=== PATIENT | male | born 1950 | race Caucasian/White ===

== ENCOUNTER 2021-04-11 15:06 | Inpatient (IN) | payer MEDICARE, OTHER ==
[~2021-04-11] VITALS: Ht 177.8 cm; Wt 125.2 kg
[2021-04-11] MEDS ORDERED: SODIUM CHLORIDE 0.9% 1000ML 1,000 ML IV SCH (16:15)
[2021-04-11] MEDS ORDERED: CEFTRIAXONE 1 GM VIAL IM ONE (16:15)
[2021-04-11 16:37] LABS: BASOPHILS % 0.3 % (0.0-1.0); EOSINOPHILS % 0.1 % (0.0-6.0); HEMATOCRIT 43.9 % (38.2-49.6); HEMOGLOBIN 14.1 g/dL (14.0-18.0); LYMPHOCYTES # (AUTO) 1.1 (1.0-3.2); LYMPHOCYTES % 9.2 % (18.0-39.1); MEAN CORPUSCULAR HEMOGLOBIN 27.3 pg (28-32); MEAN CORPUSCULAR HGB CONC 32.1 g/dL (31-35); MEAN CORPUSCULAR VOLUME 85.1 fL (81-99); MONOCYTES # (AUTO) 0.9 (0.2-0.8); MONOCYTES % 7.8 % (4.4-11.3); NEUTROPHILS # (AUTO) 9.4 (2.1-6.9); NEUTROPHILS % 81.5 % (38.7-80.0); PLATELET COUNT 226 x10e3/uL (140-360); RED BLOOD COUNT 5.16 x10e6/uL (4.3-5.7); RED CELL DISTRIBUTION WIDTH 14.6 % (11.7-14.4)
[2021-04-11 16:45] LABS: INR 0.98; PROTHROMBIN TIME 13.7 seconds (11.9-14.5)
[2021-04-11 16:55] LABS: ALBUMIN 3.1 g/dL (3.5-5.0); ALBUMIN/GLOBULIN RATIO 0.8 (0.8-2.0); CALCIUM 8.3 mg/dL (8.4-10.2); CREATININE, SERUM 2.2 mg/dL (0.72-1.25)
[2021-04-11] MEDS ORDERED: DEXAMETHASONE SOD PHOS 10 MG/1 ML VIAL IV ONE (18:00)
[2021-04-11 20:01] LABS: CLARITY,URINE SL CLOUDY (CLEAR); COLOR,URINE AMBER (YELLOW); KETONES,URINE NEGATIVE (NEGATIVE); LEUKOCYTE ESTERASE ,URINE NEGATIVE (NEGATIVE); NITRITE,URINE NEGATIVE (NEGATIVE); PROTEIN,URINE DIPSTICK 2+ (NEGATIVE)
[2021-04-11 20:02] LABS: URINE UROBILINOGEN 1 mg/dL (0.2 - 1)
[2021-04-11 20:11] LABS: BACTERIA,URINE MODERATE /HPF
[2021-04-12] MEDS: ZOLPIDEM TARTRATE 5 MG TAB PO PRN ×2 (01:38→23:33)
[2021-04-12] MEDS: HYDROCODONE/APAP 5MG-325MG TAB PO PRN (01:38)
[2021-04-12 05:52] LABS: BASOPHILS % 0.1 % (0.0-1.0); LYMPHOCYTES # (AUTO) 0.7 (1.0-3.2); LYMPHOCYTES % 8.7 % (18.0-39.1); MEAN CORPUSCULAR HEMOGLOBIN 27.3 pg (28-32); MEAN CORPUSCULAR HGB CONC 32.6 g/dL (31-35); MEAN CORPUSCULAR VOLUME 83.8 fL (81-99); MONOCYTES # (AUTO) 0.5 (0.2-0.8); MONOCYTES % 5.7 % (4.4-11.3); NEUTROPHILS # (AUTO) 6.8 (2.1-6.9); NEUTROPHILS % 83.9 % (38.7-80.0); PLATELET COUNT 231 x10e3/uL (140-360); RED BLOOD COUNT 5.13 x10e6/uL (4.3-5.7)
[2021-04-12 05:59] LABS: ALBUMIN 2.9 g/dL (3.5-5.0); ALBUMIN/GLOBULIN RATIO 0.7 (0.8-2.0); ANION GAP 16.1 mmol/L (8-16); CALCIUM 7.9 mg/dL (8.4-10.2); CREATININE, SERUM 1.85 mg/dL (0.72-1.25); POTASSIUM 4.1 mmol/L (3.5-5.1)
[2021-04-12 07:09] LABS: CREATINE KINASE MB 0.7 ng/mL (0-5.0)
[2021-04-12] MEDS: ASCORBIC ACID 500 MG TAB PO SCH ×2 (08:13→16:54)
[2021-04-12] MEDS: ENOXAPARIN INJ 80 MG/0.8 ML SYR SC SCH ×2 (08:13→16:54)
[2021-04-12] MEDS: ZINC SULFATE 50 MG CAP PO SCH (08:13)
[2021-04-12] MEDS ORDERED: DEXTROSE 50% SYRINGE 50 ML IV PRN (09:15)
[2021-04-12] MEDS: INSULIN LISPRO 100 UNIT/1 ML 3ML VIAL SQ SCH ×3 (11:47→21:11)
[2021-04-12 12:19] LABS: ABG HCO3 25 mmol/L (22-26); ABG PCO2 35 mmHg (35-45); ABG PH 7.46 (7.35-7.45); ABG PO2 61 mmHg (80-105); ABG TCO2 26
[2021-04-12] MEDS ORDERED: GABAPENTIN 100 MG CAP ONE (13:44)
[2021-04-12] MEDS: CEFTRIAXONE 2 GM in SODIUM CHLORIDE 0.9% 100 ML IV SCH (16:54)
[2021-04-12] MEDS: DEXAMETHASONE SOD PHOS 10 MG/1 ML VIAL IV SCH (17:47)
[2021-04-12 20:00] VITALS: BP 124/78
[2021-04-12 21:15] VITALS: BP 124/78
[2021-04-12 21:46] VITALS: BP 124/78
[2021-04-12] MEDS ORDERED: GABAPENTIN 300 MG CAP PO ONE (23:30)
[2021-04-13] VITALS: BP 137/81
[2021-04-13] MEDS ORDERED: METFORMIN HCL500 MG PO (01:14)
[2021-04-13] MEDS ORDERED: NEURONTIN300 MG PO (01:14)
[2021-04-13] MEDS ORDERED: AMLODIPINE BESY10 MG PO (01:14)
[2021-04-13] MEDS ORDERED: ATORVASTATIN CA10 MG PO (01:14)
[2021-04-13] MEDS ORDERED: METOPROLOL SUCC50 MG PO (01:14)
[2021-04-13] MEDS ORDERED: LOSARTAN-HCTZ1 EAC1 PO (01:14)
[2021-04-13] MEDS ORDERED: GLIMEPIRIDE2 MG PO (01:14)
[2021-04-13 04:00] VITALS: BP 126/68
[2021-04-13 05:05] LABS: BASOPHILS % 0.1 % (0.0-1.0); HEMATOCRIT 39.7 % (38.2-49.6); HEMOGLOBIN 13.1 g/dL (14.0-18.0); LYMPHOCYTES # (AUTO) 0.9 (1.0-3.2); LYMPHOCYTES % 5.3 % (18.0-39.1); MEAN CORPUSCULAR HEMOGLOBIN 27.7 pg (28-32); MEAN CORPUSCULAR VOLUME 83.9 fL (81-99); MONOCYTES # (AUTO) 1.2 (0.2-0.8); NEUTROPHILS # (AUTO) 14.5 (2.1-6.9); NEUTROPHILS % 86.2 % (38.7-80.0); PLATELET COUNT 265 x10e3/uL (140-360); RED BLOOD COUNT 4.73 x10e6/uL (4.3-5.7); RED CELL DISTRIBUTION WIDTH 13.9 % (11.7-14.4)
[2021-04-13 05:51] LABS: ALBUMIN 2.7 g/dL (3.5-5.0); ALBUMIN/GLOBULIN RATIO 0.7 (0.8-2.0); ANION GAP 17.9 mmol/L (8-16); CALCIUM 7.8 mg/dL (8.4-10.2); CREATININE, SERUM 1.6 mg/dL (0.72-1.25); POTASSIUM 3.9 mmol/L (3.5-5.1)
[2021-04-13 08:03] VITALS: BP 100/47
[2021-04-13] MEDS: DEXAMETHASONE SOD PHOS 10 MG/1 ML VIAL IV SCH (08:45)
[2021-04-13] MEDS: ENOXAPARIN INJ 80 MG/0.8 ML SYR SC SCH ×2 (08:45→17:08)
[2021-04-13] MEDS: ZINC SULFATE 50 MG CAP PO SCH (08:45)
[2021-04-13] MEDS: GABAPENTIN 100 MG CAP PO SCH (08:45)
[2021-04-13] MEDS: ASCORBIC ACID 500 MG TAB PO SCH ×2 (08:45→17:08)
[2021-04-13] MEDS: INSULIN LISPRO 100 UNIT/1 ML 3ML VIAL SQ SCH ×4 (09:02→21:24)
[2021-04-13] MEDS: GUAIFENESIN 200 MG/10 ML UDC PO PRN (14:55)
[2021-04-13 16:09] VITALS: BP 121/77
[2021-04-13] MEDS ORDERED: SODIUM CHLORIDE 0.9% 250ML 250 ML ONE (16:57)
[2021-04-13] MEDS: CEFTRIAXONE 2 GM in SODIUM CHLORIDE 0.9% 100 ML IV SCH (17:08)
[2021-04-13 20:00] VITALS: BP 121/72
[2021-04-13 20:55] VITALS: BP 121/72
[2021-04-14] VITALS (8 sets, daily range): BP systolic 132–152; BP diastolic 67–83
[2021-04-14] MEDS: ZOLPIDEM TARTRATE 5 MG TAB PO PRN ×2 (01:48→22:42)
[2021-04-14 05:08] LABS: BASOPHILS % 0.2 % (0.0-1.0); EOSINOPHILS % 0.1 % (0.0-6.0); HEMATOCRIT 43.8 % (38.2-49.6); HEMOGLOBIN 13.5 g/dL (14.0-18.0); LYMPHOCYTES # (AUTO) 0.9 (1.0-3.2); LYMPHOCYTES % 5.4 % (18.0-39.1); MEAN CORPUSCULAR HEMOGLOBIN 27.7 pg (28-32); MEAN CORPUSCULAR HGB CONC 30.8 g/dL (31-35); MEAN CORPUSCULAR VOLUME 89.8 fL (81-99); MONOCYTES # (AUTO) 1.2 (0.2-0.8); MONOCYTES % 7.2 % (4.4-11.3); NEUTROPHILS # (AUTO) 14.5 (2.1-6.9); NEUTROPHILS % 86.3 % (38.7-80.0); PLATELET COUNT 234 x10e3/uL (140-360); RED BLOOD COUNT 4.88 x10e6/uL (4.3-5.7); RED CELL DISTRIBUTION WIDTH 14.1 % (11.7-14.4)
[2021-04-14] MEDS ORDERED: MAGNESIUM SULFATE 2GM/50ML 50 ML IV ONE (06:00)
[2021-04-14] MEDS: INSULIN LISPRO 100 UNIT/1 ML 3ML VIAL SQ SCH ×4 (07:30→20:38)
[2021-04-14 07:32] LABS: ALBUMIN 2.5 g/dL (3.5-5.0); ALBUMIN/GLOBULIN RATIO 0.7 (0.8-2.0); ANION GAP 14.9 mmol/L (8-16); CALCIUM 7.7 mg/dL (8.4-10.2); CREATININE, SERUM 1.34 mg/dL (0.72-1.25); POTASSIUM 3.9 mmol/L (3.5-5.1)
[2021-04-14] MEDS: ENOXAPARIN INJ 80 MG/0.8 ML SYR SC SCH ×2 (11:37→16:05)
[2021-04-14] MEDS: GABAPENTIN 100 MG CAP PO SCH (11:37)
[2021-04-14] MEDS: ZINC SULFATE 50 MG CAP PO SCH (11:37)
[2021-04-14] MEDS: ASCORBIC ACID 500 MG TAB PO SCH ×2 (11:37→16:05)
[2021-04-14] MEDS: DEXAMETHASONE SOD PHOS 10 MG/1 ML VIAL IV SCH (11:37)
[2021-04-14] MEDS ORDERED: AZITHROMYCIN 250 MG TAB PO SCH (15:00)
[2021-04-14] MEDS: CEFTRIAXONE 2 GM in SODIUM CHLORIDE 0.9% 100 ML IV SCH (16:05)
[2021-04-14] MEDS: GABAPENTIN 300 MG CAP PO PRN (20:36)
[2021-04-15] VITALS (9 sets, daily range): BP systolic 86–128; BP diastolic 54–101
[2021-04-15] MEDS: METOPROLOL SUCCINATE 50 MG TAB XL PO SCH ×2 (00:13→08:59)
[2021-04-15 05:07] LABS: BASOPHILS % 0.1 % (0.0-1.0); HEMATOCRIT 43.5 % (38.2-49.6); HEMOGLOBIN 14.2 g/dL (14.0-18.0); LYMPHOCYTES # (AUTO) 0.9 (1.0-3.2); LYMPHOCYTES % 5.8 % (18.0-39.1); MEAN CORPUSCULAR HEMOGLOBIN 27.3 pg (28-32); MEAN CORPUSCULAR HGB CONC 32.6 g/dL (31-35); MEAN CORPUSCULAR VOLUME 83.7 fL (81-99); MONOCYTES # (AUTO) 1.2 (0.2-0.8); MONOCYTES % 7.7 % (4.4-11.3); NEUTROPHILS # (AUTO) 12.6 (2.1-6.9); NEUTROPHILS % 84.7 % (38.7-80.0); PLATELET COUNT 308 x10e3/uL (140-360); RED CELL DISTRIBUTION WIDTH 13.8 % (11.7-14.4)
[2021-04-15] MEDS: GUAIFENESIN 200 MG/10 ML UDC PO PRN ×2 (05:16→16:29)
[2021-04-15 05:54] LABS: ALBUMIN 2.6 g/dL (3.5-5.0); ALBUMIN/GLOBULIN RATIO 0.6 (0.8-2.0); ANION GAP 16.3 mmol/L (8-16); CALCIUM 8.2 mg/dL (8.4-10.2); CREATININE, SERUM 1.18 mg/dL (0.72-1.25); POTASSIUM 4.3 mmol/L (3.5-5.1)
[2021-04-15] MEDS ORDERED: METOPROLOL TARTRATE INJ 1 MG/ML VIAL IV ONE (08:00)
[2021-04-15] MEDS: GABAPENTIN 100 MG CAP PO SCH (08:58)
[2021-04-15] MEDS: DEXAMETHASONE SOD PHOS 10 MG/1 ML VIAL IV SCH (08:58)
[2021-04-15] MEDS: ASCORBIC ACID 500 MG TAB PO SCH ×2 (08:59→16:29)
[2021-04-15] MEDS: ZINC SULFATE 50 MG CAP PO SCH (08:59)
[2021-04-15] MEDS: ENOXAPARIN INJ 80 MG/0.8 ML SYR SC SCH ×2 (08:59→16:29)
[2021-04-15] MEDS ORDERED: LOSARTAN POTASSIUM 100 MG TAB PO SCH (09:00)
[2021-04-15] MEDS ORDERED: HYDROCHLOROTHIAZIDE 25 MG TAB PO SCH (09:00)
[2021-04-15] MEDS ORDERED: AMLODIPINE BESYLATE 10 MG TAB PO SCH (09:00)
[2021-04-15] MEDS: INSULIN LISPRO 100 UNIT/1 ML 3ML VIAL SQ SCH ×4 (10:00→21:25)
[2021-04-15] MEDS ORDERED: SODIUM CHLORIDE 0.9% 50ML 50 ML ONE (13:59)
[2021-04-15] MEDS ORDERED: IOPAMIDOL 370 MG/ML 200 ML INFUS..BTL INJ ONE (14:00)
[2021-04-15] MEDS ORDERED: REMDESIVIR 100MG 200 MG in SODIUM CHLORIDE 0.9% 100 ML IV ONE (14:00)
[2021-04-15] MEDS ORDERED: DIGOXIN INJ 0.25 MG/ML 2 ML AMP IV ONE (17:15)
[2021-04-15] MEDS ORDERED: METOPROLOL SUCCINATE 50 MG TAB XL PO SCH (17:30)
[2021-04-15] MEDS ORDERED: AMIODARONE 900MG 500 ML IV PRN (19:45)
[2021-04-15] MEDS ORDERED: AMIODARONE HCL 150 MG/100 ML BAG IV ONE (19:45)
[2021-04-15] MEDS ORDERED: ENOXAPARIN SODIUM INJ 100 MG/ML SYR SC SCH (19:45)
[2021-04-15] MEDS ORDERED: AMIODARONE 900MG 500 ML IV ONE (21:00)
[2021-04-15] MEDS: GABAPENTIN 300 MG CAP PO PRN (23:00)
[2021-04-15] MEDS: ZOLPIDEM TARTRATE 5 MG TAB PO PRN (23:00)
[2021-04-16] VITALS (11 sets, daily range): BP systolic 97–124; BP diastolic 66–86
[2021-04-16] MEDS: INSULIN LISPRO 100 UNIT/1 ML 3ML VIAL SQ SCH ×4 (07:44→21:26)
[2021-04-16 07:53] LABS: BASOPHILS % 0.2 % (0.0-1.0); HEMATOCRIT 47.9 % (38.2-49.6); HEMOGLOBIN 15.5 g/dL (14.0-18.0); LYMPHOCYTES # (AUTO) 1.5 (1.0-3.2); LYMPHOCYTES % 7.7 % (18.0-39.1); MEAN CORPUSCULAR HEMOGLOBIN 27.3 pg (28-32); MEAN CORPUSCULAR HGB CONC 32.4 g/dL (31-35); MEAN CORPUSCULAR VOLUME 84.3 fL (81-99); MONOCYTES # (AUTO) 1.5 (0.2-0.8); MONOCYTES % 7.9 % (4.4-11.3); NEUTROPHILS # (AUTO) 15.9 (2.1-6.9); NEUTROPHILS % 82.7 % (38.7-80.0); PLATELET COUNT 327 x10e3/uL (140-360); RED BLOOD COUNT 5.68 x10e6/uL (4.3-5.7); RED CELL DISTRIBUTION WIDTH 13.8 % (11.7-14.4)
[2021-04-16 08:17] LABS: ALBUMIN 2.6 g/dL (3.5-5.0); ALBUMIN/GLOBULIN RATIO 0.7 (0.8-2.0); CALCIUM 8.3 mg/dL (8.4-10.2); CREATININE, SERUM 1.26 mg/dL (0.72-1.25)
[2021-04-16] MEDS ORDERED: LOSARTAN POTASSIUM 25 MG TAB PO SCH (09:00)
[2021-04-16] MEDS ORDERED: METOPROLOL SUCCINATE 50 MG TAB XL PO NR (12:00)
[2021-04-16] MEDS ORDERED: DIGOXIN INJ 0.25 MG/ML 2 ML AMP IV NR (12:00)
[2021-04-16] MEDS: REMDESIVIR 100MG 100 MG in SODIUM CHLORIDE 0.9% 100 ML IV SCH (14:00)
[2021-04-16] MEDS: ASCORBIC ACID 500 MG TAB PO SCH ×2 (14:33→17:55)
[2021-04-16] MEDS: DEXAMETHASONE SOD PHOS 10 MG/1 ML VIAL IV SCH (14:33)
[2021-04-16] MEDS: ZINC SULFATE 50 MG CAP PO SCH (14:33)
[2021-04-16] MEDS: ENOXAPARIN SOD INJ 60 MG/0.6 ML SYR SC SCH ×2 (14:33→21:26)
[2021-04-16] MEDS: GABAPENTIN 100 MG CAP PO SCH (14:33)
[2021-04-16] MEDS: METOPROLOL SUCCINATE 50 MG TAB XL PO SCH (17:56)
[2021-04-16] MEDS ORDERED: AMIODARONE 900MG 500 ML IV ONE (23:45)
[2021-04-17] VITALS (9 sets, daily range): BP systolic 93–130; BP diastolic 53–90
[2021-04-17 06:30] LABS: BASOPHILS % 0.2 % (0.0-1.0); EOSINOPHILS % 0.1 % (0.0-6.0); HEMATOCRIT 44.7 % (38.2-49.6); HEMOGLOBIN 14.6 g/dL (14.0-18.0); LYMPHOCYTES % 5.5 % (18.0-39.1); MEAN CORPUSCULAR HEMOGLOBIN 27.3 pg (28-32); MEAN CORPUSCULAR HGB CONC 32.7 g/dL (31-35); MEAN CORPUSCULAR VOLUME 83.7 fL (81-99); MONOCYTES # (AUTO) 1.5 (0.2-0.8); MONOCYTES % 8.2 % (4.4-11.3); NEUTROPHILS # (AUTO) 15.6 (2.1-6.9); NEUTROPHILS % 83.8 % (38.7-80.0); PLATELET COUNT 360 x10e3/uL (140-360); RED BLOOD COUNT 5.34 x10e6/uL (4.3-5.7); RED CELL DISTRIBUTION WIDTH 13.7 % (11.7-14.4)
[2021-04-17 07:10] LABS: ALBUMIN 2.6 g/dL (3.5-5.0); ALBUMIN/GLOBULIN RATIO 0.7 (0.8-2.0); ANION GAP 15.3 mmol/L (8-16); CALCIUM 8.7 mg/dL (8.4-10.2); CREATININE, SERUM 1.46 mg/dL (0.72-1.25); POTASSIUM 4.3 mmol/L (3.5-5.1)
[2021-04-17] MEDS: INSULIN LISPRO 100 UNIT/1 ML 3ML VIAL SQ SCH ×4 (08:30→22:27)
[2021-04-17] MEDS: ENOXAPARIN SOD INJ 60 MG/0.6 ML SYR SC SCH ×2 (08:30→22:29)
[2021-04-17] MEDS: GABAPENTIN 100 MG CAP PO SCH (08:44)
[2021-04-17] MEDS: ASCORBIC ACID 500 MG TAB PO SCH ×2 (08:44→16:33)
[2021-04-17] MEDS: DEXAMETHASONE SOD PHOS 10 MG/1 ML VIAL IV SCH (08:44)
[2021-04-17] MEDS: METOPROLOL SUCCINATE 50 MG TAB XL PO SCH ×2 (08:44→16:54)
[2021-04-17] MEDS: ZINC SULFATE 50 MG CAP PO SCH (08:44)
[2021-04-17] MEDS ORDERED: DIGOXIN INJ 0.25 MG/ML 2 ML AMP IV NR (11:15)
[2021-04-17] MEDS: AMIODARONE HCL 200 MG TAB PO SCH ×2 (12:19→16:54)
[2021-04-17] MEDS: REMDESIVIR 100MG 100 MG in SODIUM CHLORIDE 0.9% 100 ML IV SCH (13:27)
[2021-04-17] MEDS: ZOLPIDEM TARTRATE 5 MG TAB PO PRN (22:29)
[2021-04-18] VITALS (8 sets, daily range): BP systolic 104–133; BP diastolic 57–80
[2021-04-18] MEDS ORDERED: METOPROLOL TARTRATE 25 MG TAB PO ONE (00:30)
[2021-04-18] MEDS ORDERED: Morphine 2mg Syringe 2 MG/ML SYR IV ONE (04:00)
[2021-04-18] MEDS ORDERED: Morphine 2mg Syringe 2 MG/ML SYR IV PRN (04:00)
[2021-04-18] MEDS ORDERED: DIATRIZOATE MEGL/DIATRIZOA SOD 30 ML BTL PO ONE (05:02)
[2021-04-18 05:47] LABS: BASOPHILS % 0.2 % (0.0-1.0); EOSINOPHILS # (AUTO) 0.1 (0.0-0.4); EOSINOPHILS % 0.4 % (0.0-6.0); HEMOGLOBIN 15.5 g/dL (14.0-18.0); LYMPHOCYTES # (AUTO) 1.6 (1.0-3.2); LYMPHOCYTES % 8.3 % (18.0-39.1); MEAN CORPUSCULAR HEMOGLOBIN 27.4 pg (28-32); MEAN CORPUSCULAR HGB CONC 32.3 g/dL (31-35); MONOCYTES # (AUTO) 1.7 (0.2-0.8); MONOCYTES % 9.3 % (4.4-11.3); NEUTROPHILS # (AUTO) 14.8 (2.1-6.9); NEUTROPHILS % 79.2 % (38.7-80.0); PLATELET COUNT 367 x10e3/uL (140-360); RED BLOOD COUNT 5.65 x10e6/uL (4.3-5.7); RED CELL DISTRIBUTION WIDTH 13.7 % (11.7-14.4)
[2021-04-18 05:55] LABS: ALBUMIN 2.6 g/dL (3.5-5.0); ALBUMIN/GLOBULIN RATIO 0.7 (0.8-2.0); ANION GAP 18.1 mmol/L (8-16); CALCIUM 8.5 mg/dL (8.4-10.2); CREATININE, SERUM 1.36 mg/dL (0.72-1.25); POTASSIUM 4.1 mmol/L (3.5-5.1)
[2021-04-18] MEDS: ZINC SULFATE 50 MG CAP PO SCH (08:43)
[2021-04-18] MEDS: DEXAMETHASONE SOD PHOS 10 MG/1 ML VIAL IV SCH (08:43)
[2021-04-18] MEDS: GABAPENTIN 100 MG CAP PO SCH (08:43)
[2021-04-18] MEDS: OXYBUTYNIN CHLORIDE 5 MG TAB PO SCH ×2 (08:43→17:02)
[2021-04-18] MEDS: ASCORBIC ACID 500 MG TAB PO SCH ×2 (08:43→17:01)
[2021-04-18] MEDS: AMIODARONE HCL 200 MG TAB PO SCH ×2 (08:43→17:02)
[2021-04-18] MEDS: INSULIN LISPRO 100 UNIT/1 ML 3ML VIAL SQ SCH ×4 (08:44→21:35)
[2021-04-18] MEDS: METOPROLOL SUCCINATE 50 MG TAB XL PO SCH ×2 (08:56→17:02)
[2021-04-18] MEDS: ENOXAPARIN SOD INJ 60 MG/0.6 ML SYR SC SCH ×2 (08:56→21:31)
[2021-04-18] MEDS: REMDESIVIR 100MG 100 MG in SODIUM CHLORIDE 0.9% 100 ML IV SCH (14:35)
[2021-04-18] MEDS: HYDROCODONE/APAP 5MG-325MG TAB PO PRN ×2 (21:31→22:05)
[2021-04-18] MEDS: ZOLPIDEM TARTRATE 5 MG TAB PO PRN (21:31)
[2021-04-19] VITALS (7 sets, daily range): BP systolic 130–142; BP diastolic 65–81
[2021-04-19] MEDS: AMIODARONE HCL 200 MG TAB PO SCH ×2 (08:35→17:01)
[2021-04-19] MEDS: OXYBUTYNIN CHLORIDE 5 MG TAB PO SCH ×2 (08:35→17:01)
[2021-04-19] MEDS: ENOXAPARIN SOD INJ 60 MG/0.6 ML SYR SC SCH (08:35)
[2021-04-19] MEDS: GABAPENTIN 100 MG CAP PO SCH (08:36)
[2021-04-19] MEDS: ASCORBIC ACID 500 MG TAB PO SCH ×2 (08:36→17:01)
[2021-04-19] MEDS: METOPROLOL SUCCINATE 50 MG TAB XL PO SCH ×2 (08:37→17:00)
[2021-04-19] MEDS: ZINC SULFATE 50 MG CAP PO SCH (08:37)
[2021-04-19] MEDS: INSULIN LISPRO 100 UNIT/1 ML 3ML VIAL SQ SCH ×3 (08:39→16:51)
[2021-04-19] MEDS: REMDESIVIR 100MG 100 MG in SODIUM CHLORIDE 0.9% 100 ML IV SCH (14:09)
[2021-04-19] MEDS ORDERED: AMIODARONE HCL200 MG PO (16:02)
[2021-04-19] MEDS ORDERED: SINGULAIR10 MG PO (16:03)
[2021-04-19] MEDS ORDERED: OXYBUTYNIN CHLOR5 MG PO (16:04)
[2021-04-20] MEDS ORDERED: ENOXAPARIN SOD INJ 40 MG/0.4 ML SYR SC SCH (08:00)
== END 2021-04-19 18:58 | disposition home or self-care (01) | DRG 177 ==
LOC: ER 15:31 → ERHOLD 18:22 → MED/SURG2 04-12 17:48 → IMCU 04-15 21:24 → MED/SURG2 04-16 08:49
PROVIDERS: ADMIT Internal Medicine; ATTEND Internal Medicine
PROC: 3E0333Z Introduction of Anti-inflammatory into Peripheral Vein, Percutaneous Approach (ICD-10-PCS; principal; 2021-04-11)
PROC: XW033E5 Introduction of Remdesivir Anti-infective into Peripheral Vein, Percutaneous Approach, New Technology Group 5 (ICD-10-PCS; 2021-04-15)
DX: U07.1 COVID-19 (principal); J12.82 Pneumonia due to coronavirus disease 2019; J96.01 Acute respiratory failure with hypoxia; N17.9 Acute kidney failure, unspecified; I48.92 Unspecified atrial flutter; I47.1 Supraventricular tachycardia; E86.0 Dehydration; F43.21 Adjustment disorder with depressed mood; E78.5 Hyperlipidemia, unspecified; E66.01 Morbid (severe) obesity due to excess calories; E11.22 Type 2 diabetes mellitus with diabetic chronic kidney disease; I12.9 Hypertensive chronic kidney disease with stage 1 through stage 4 chronic kidney disease, or unspecified chronic kidney disease; N18.30 Chronic kidney disease, stage 3 unspecified; K80.20 Calculus of gallbladder without cholecystitis without obstruction; R33.9 Retention of urine, unspecified; N20.0 Calculus of kidney; R80.9 Proteinuria, unspecified; Z68.39 Body mass index [BMI] 39.0-39.9, adult; Z90.49 Acquired absence of other specified parts of digestive tract; Z88.0 Allergy status to penicillin; Z82.49 Family history of ischemic heart disease and other diseases of the circulatory system; Z79.84 Long term (current) use of oral hypoglycemic drugs
CPT/HCPCS: 36415; 36600; 71045; 71260; 74176; 80053; 81001; 82550; 82553; 82805; 82948; 83605; 83735; 84443; 84484; 85025; 85610; 87040; 87086; 93005; 93306; 94799; 96365; 96366; 97139; 99251; 99284; J0248; J0456; J0696; J1100; J1160; J1650; J2270; J3475; J7030; J7050; Q9967; U0002

== ENCOUNTER → 2022-01-19 | Day surgery (SDC) | payer MEDICARE, OTHER ==
[2022-01-17 14:06] LABS: BASOPHILS # (AUTO) 0.1 (0.0-0.1); BASOPHILS % 0.5 % (0.0-1.0); EOSINOPHILS # (AUTO) 0.2 (0.0-0.4); EOSINOPHILS % 1.9 % (0.0-6.0); HEMATOCRIT 45.2 % (38.2-49.6); HEMOGLOBIN 13.9 g/dL (14.0-18.0); LYMPHOCYTES # (AUTO) 1.6 (1.0-3.2); LYMPHOCYTES % 14.4 % (18.0-39.1); MEAN CORPUSCULAR HEMOGLOBIN 26.7 pg (28-32); MEAN CORPUSCULAR HGB CONC 30.8 g/dL (31-35); MEAN CORPUSCULAR VOLUME 86.9 fL (81-99); MONOCYTES % 9.3 % (4.4-11.3); NEUTROPHILS % 73.4 % (38.7-80.0); PLATELET COUNT 203 x10e3/uL (140-360); RED CELL DISTRIBUTION WIDTH 14.5 % (11.7-14.4)
[2022-01-17 14:28] LABS: ANION GAP 15.6 mmol/L (8-16); CALCIUM 9.5 mg/dL (8.4-10.2); CREATININE, SERUM 2.23 mg/dL (0.72-1.25); POTASSIUM 4.6 mmol/L (3.5-5.1)
[~2022-01-19] MED LIST: AMIODARONE HCL200 MG PO; AMLODIPINE BESY10 MG PO; ATORVASTATIN CA10 MG PO; BUPIVACAINE HCL 0.5% INJ 30 ML VIAL INJ ONE; DEXAMETHASONE SOD PHOS INJ 4 MG/ML SDV IV ONE; EPHEDRINE SULFATE INJ 50 MG/ML VIAL IV ONE; GLIMEPIRIDE2 MG PO; LIDOCAINE HCL 2% LOCAL INJ 5 ML SDV VIAL INJ ONE; LOSARTAN-HCTZ1 EAC1 PO; METFORMIN HCL500 MG PO; METOPROLOL SUCC50 MG PO; NEURONTIN300 MG PO; ONDANSETRON HCL INJ 2MG/ML 2ML 2 MG/ML VIAL IV ONE; OXYBUTYNIN CHLOR5 MG PO; POVIDONE IODINE 0.05% 0.05 % ML PO ONE; PROPOFOL IV EMULSION 10 MG/ML 20 ML VIAL IV ONE; SEVOFLURANE INHAL SOLN 250 ML PEN BTL INH ONE; SINGULAIR10 MG PO
[2022-01-19 15:40] VITALS: BP 146/64
== END | disposition home or self-care (01) ==
LOC: OR 10:39
PROVIDERS: ATTEND Specialist
DX: G56.21 Lesion of ulnar nerve, right upper limb (principal); G62.9 Polyneuropathy, unspecified; S91.109A Unspecified open wound of unspecified toe(s) without damage to nail, initial encounter; I73.9 Peripheral vascular disease, unspecified; I10 Essential (primary) hypertension; E78.5 Hyperlipidemia, unspecified; E11.9 Type 2 diabetes mellitus without complications; I45.10 Unspecified right bundle-branch block; I44.4 Left anterior fascicular block; R00.1 Bradycardia, unspecified; X58.XXXA Exposure to other specified factors, initial encounter; Z88.6 Allergy status to analgesic agent; Z88.0 Allergy status to penicillin; Z01.810 Encounter for preprocedural cardiovascular examination; Z01.812 Encounter for preprocedural laboratory examination; Z01.818 Encounter for other preprocedural examination; Z79.84 Long term (current) use of oral hypoglycemic drugs; Z79.899 Other long term (current) drug therapy; Z68.35 Body mass index [BMI] 35.0-35.9, adult; Z87.891 Personal history of nicotine dependence
CPT/HCPCS: 36415 ×2; 64718; 71046; 80048; 82948; 85025; 93005; J0690; J1100; J2001; J2405; J2704

== ENCOUNTER → 2023-01-25 | Outpatient (REF) | payer MEDICARE, OTHER ==
[~2023-01-25] MED LIST changes: -BUPIVACAINE HCL 0.5% INJ 30 ML VIAL INJ ONE; -DEXAMETHASONE SOD PHOS INJ 4 MG/ML SDV IV ONE; -EPHEDRINE SULFATE INJ 50 MG/ML VIAL IV ONE; -LIDOCAINE HCL 2% LOCAL INJ 5 ML SDV VIAL INJ ONE; -ONDANSETRON HCL INJ 2MG/ML 2ML 2 MG/ML VIAL IV ONE; -POVIDONE IODINE 0.05% 0.05 % ML PO ONE; -PROPOFOL IV EMULSION 10 MG/ML 20 ML VIAL IV ONE; -SEVOFLURANE INHAL SOLN 250 ML PEN BTL INH ONE
== END ==
LOC: RAD 14:54
PROVIDERS: ATTEND Podiatrist Foot & Ankle Surgery
DX: S91.301D Unspecified open wound, right foot, subsequent encounter (principal)

== ENCOUNTER 2023-10-30 11:31 | Emergency (ER) | payer MEDICARE, OTHER ==
[~2023-10-30] VITALS: Ht 172.7 cm; Wt 113.4 kg
[2023-10-30 11:41] VITALS: PULSE 70; RESP 15; TEMP 98.1
[2023-10-30 12:03] LABS: BASOPHILS # (AUTO) 0.1 (0.0-0.1); BASOPHILS % 0.5 % (0.0-1.0); EOSINOPHILS # (AUTO) 0.5 (0.0-0.4); EOSINOPHILS % 2.4 % (0.0-6.0); HEMATOCRIT 43.4 % (38.2-49.6); LYMPHOCYTES # (AUTO) 1.4 (1.0-3.2); LYMPHOCYTES % 7.5 % (18.0-39.1); MEAN CORPUSCULAR HEMOGLOBIN 29.3 pg (28-32); MEAN CORPUSCULAR HGB CONC 32.3 g/dL (31-35); MEAN CORPUSCULAR VOLUME 90.8 fL (81-99); MONOCYTES # (AUTO) 1.7 (0.2-0.8); NEUTROPHILS # (AUTO) 15.1 (2.1-6.9); NEUTROPHILS % 79.8 % (38.7-80.0); PLATELET COUNT 251 x10e3/uL (140-360); RED BLOOD COUNT 4.78 x10e6/uL (4.3-5.7); RED CELL DISTRIBUTION WIDTH 13.2 % (11.7-14.4); WHITE BLOOD COUNT 18.95 x10e3/uL (4.8-10.8)
[2023-10-30] MEDS: SODIUM CHLORIDE 0.9% 1000ML 1,000 ML IV STA ×2 (12:27→14:45)
[2023-10-30 12:28] LABS: BILIRUBIN,URINE NEGATIVE (NEGATIVE); CLARITY,URINE SL CLOUDY (CLEAR); COLOR,URINE YELLOW (YELLOW); GLUCOSE, URINE NEGATIVE (NEGATIVE); KETONES,URINE NEGATIVE (NEGATIVE); LEUKOCYTE ESTERASE ,URINE NEGATIVE (NEGATIVE); NITRITE,URINE NEGATIVE (NEGATIVE); PH,URINE 5 (5 - 7); PROTEIN,URINE DIPSTICK 1+ (NEGATIVE); URINE UROBILINOGEN 0.2 mg/dL (0.2 - 1)
[2023-10-30 12:29] LABS: BACTERIA,URINE MODERATE /HPF; EPITHELIAL CELLS,URINE FEW /LPF; RBC,URINE 0-5 /HPF (0-5); RENAL EPITHELIAL CELLS,URINE RARE; TRANSITIONAL EPI CELLS,URINE RARE
[2023-10-30 12:31] LABS: ALBUMIN 3.6 g/dL (3.5-5.0); ALBUMIN/GLOBULIN RATIO 0.9 (0.8-2.0); ANION GAP 17.1 mmol/L (8-16); BILIRUBIN,TOTAL 0.9 mg/dL (0.2-1.2); CALCIUM 8.8 mg/dL (8.4-10.2); CREATININE, SERUM 3.51 mg/dL (0.72-1.25); MAGNESIUM 1.3 MG/DL (1.3-2.1); POTASSIUM 4.1 mmol/L (3.5-5.1); TOTAL PROTEIN 7.5 g/dL (6.5-8.1)
[2023-10-30] MEDS ORDERED: CEFDINIR300 MG PO (14:02)
[2023-10-30 14:27] VITALS: BP 133/97; PULSE 95; RESP 16; O2SAT 98
== END 2023-10-30 14:27 | disposition home or self-care (01) ==
LOC: ER 12:04
DX: D72.829 Elevated white blood cell count, unspecified (principal); N39.0 Urinary tract infection, site not specified; N28.9 Disorder of kidney and ureter, unspecified; E11.65 Type 2 diabetes mellitus with hyperglycemia; I10 Essential (primary) hypertension; E78.5 Hyperlipidemia, unspecified; Z98.0 Intestinal bypass and anastomosis status; Z11.52 Encounter for screening for COVID-19
CPT/HCPCS: 36415; 80053; 81001; 83735; 85025; 87086; 99283; J0696; J7030; U0002; 99284

== ENCOUNTER 2024-01-31 14:20 | Inpatient (IN) | payer MEDICARE, OTHER ==
[~2024-01-31] VITALS: Ht 172.7 cm; Wt 114.2 kg
[~2024-01-31 14:20] MED LIST changes: +CEFDINIR300 MG PO
[2024-01-31 17:10] VITALS: TEMP 97.7
[2024-01-31] MEDS: DILTIAZEM HCL 5 MG/ML 5 ML VIAL IV STA (17:44)
[2024-01-31] MEDS: SODIUM CHLORIDE 0.9% 1000ML 1,000 ML IV STA (17:45)
[2024-01-31 17:48] LABS: BASOPHILS # (AUTO) 0.1 (0.0-0.1); BASOPHILS % 0.5 % (0.0-1.0); EOSINOPHILS # (AUTO) 0.1 (0.0-0.4); EOSINOPHILS % 0.9 % (0.0-6.0); HEMATOCRIT 42.9 % (38.2-49.6); HEMOGLOBIN 12.6 g/dL (14.0-18.0); LYMPHOCYTES # (AUTO) 1.4 (1.0-3.2); LYMPHOCYTES % 9.3 % (18.0-39.1); MEAN CORPUSCULAR HGB CONC 29.4 g/dL (31-35); MEAN CORPUSCULAR VOLUME 95.3 fL (81-99); MONOCYTES % 6.6 % (4.4-11.3); NEUTROPHILS # (AUTO) 12.6 (2.1-6.9); NEUTROPHILS % 81.9 % (38.7-80.0); PLATELET COUNT 213 x10e3/uL (140-360); RED CELL DISTRIBUTION WIDTH 15.7 % (11.7-14.4); WHITE BLOOD COUNT 15.39 x10e3/uL (4.8-10.8)
[2024-01-31 18:00] LABS: INR 1.18; PROTHROMBIN TIME 15.7 seconds (11.9-14.5)
[2024-01-31] MEDS ORDERED: AMIODARONE HCL 150 MG/100 ML BAG IV ONE (18:00)
[2024-01-31 18:05] LABS: ALBUMIN 3.1 g/dL (3.5-5.0); ALBUMIN/GLOBULIN RATIO 0.9 (0.8-2.0); ANION GAP 15.4 mmol/L (8-16); BILIRUBIN,TOTAL 1.1 mg/dL (0.2-1.2); CALCIUM 8.9 mg/dL (8.4-10.2); CREATININE, SERUM 2.66 mg/dL (0.72-1.25); MAGNESIUM 1.8 MG/DL (1.3-2.1); POTASSIUM 4.4 mmol/L (3.5-5.1); TOTAL PROTEIN 6.4 g/dL (6.5-8.1)
[2024-01-31] MEDS ORDERED: AMIODARONE 900MG 500 ML IV ONE (18:07)
[2024-01-31 18:12] LABS: B-TYPE NATRIURETIC PEPTIDE2 582.4 pg/mL (0-100)
[2024-01-31 18:24] LABS: THYROID STIMULATING HORMONE 2.147 uIU/mL (0.350-4.940); TROPONIN I 0.023 ng/mL (0-0.300)
[2024-01-31] MEDS ORDERED: AMIODARONE HCL INJ 150MG/3ML ONE (18:36)
[2024-01-31] MEDS: AMIODARONE HCL 150 MG in DEXTROSE 5% 100ML 100 ML IV SCH (18:39)
[2024-01-31] MEDS: AMIODARONE 900MG 500 ML IV SCH (18:53)
[2024-01-31] MEDS: DIGOXIN INJ 0.25 MG/ML 2 ML AMP IV ONE (19:14)
[2024-01-31] MEDS ORDERED: HEPARIN SOD/DEXTROSE 5% 25000 UNIT/250 ML BAG IV SCH (19:15)
[2024-01-31 19:20] LABS: BILIRUBIN,URINE NEGATIVE (NEGATIVE); CLARITY,URINE SL CLOUDY (CLEAR); COLOR,URINE YELLOW (YELLOW); GLUCOSE, URINE NEGATIVE (NEGATIVE); KETONES,URINE NEGATIVE (NEGATIVE); LEUKOCYTE ESTERASE ,URINE NEGATIVE (NEGATIVE); NITRITE,URINE NEGATIVE (NEGATIVE); PH,URINE 5.5 (5 - 7); PROTEIN,URINE DIPSTICK 1+ (NEGATIVE); URINE UROBILINOGEN 0.2 mg/dL (0.2 - 1)
[2024-01-31 19:35] LABS: BACTERIA,URINE FEW /HPF; WBC,URINE (MAN) 0-5 /HPF (0-5)
[2024-01-31] MEDS: DEXTROSE 5% 100ML 100 ML IV ONE (19:49)
[2024-01-31] MEDS: Vancomycin IV 1 GM in SODIUM CHLORIDE 0.9% 250ML 250 ML IV ONE (20:02)
[2024-01-31] MEDS: HEPARIN SOD (PORCINE) 5,000 UNIT/ML VIAL IV ONE (20:05)
[2024-01-31] MEDS: HEPARIN 25,000 UNIT/D5W 250ML 250 ML IV SCH (20:06)
[2024-01-31 22:16] VITALS: PULSE 133; RESP 12
[2024-01-31 23:51] VITALS: BP 107/70; PULSE 138; TEMP 97.7; O2SAT 98
[2024-01-31] MEDS ORDERED: ULTRAM 50MG50 MG PO (23:57)
[2024-01-31] MEDS ORDERED: LEVOFLOXACIN500 MG PO (23:57)
[2024-01-31] MEDS ORDERED: GABAPENTIN600 MG PO (23:57)
[2024-01-31] MEDS ORDERED: DULOXETINE HCL60 MG (23:57)
[2024-01-31 23:58] VITALS: BP 107/70; PULSE 138; RESP 24; TEMP 97.7; O2SAT 98
[2024-02-01] VITALS (64 sets, daily range): BP systolic 88–147; BP diastolic 59–122; PULSE 27–161; RESP 4–32; TEMP 98.1–98.2; O2SAT 87–100
[2024-02-01 03:24] LABS: TROPONIN I 0.021 ng/mL (0-0.300)
[2024-02-01 06:52] LABS: BASOPHILS # (AUTO) 0.1 (0.0-0.1); BASOPHILS % 0.6 % (0.0-1.0); EOSINOPHILS # (AUTO) 0.2 (0.0-0.4); EOSINOPHILS % 1.5 % (0.0-6.0); HEMATOCRIT 39.3 % (38.2-49.6); HEMOGLOBIN 11.8 g/dL (14.0-18.0); LYMPHOCYTES # (AUTO) 1.6 (1.0-3.2); LYMPHOCYTES % 10.8 % (18.0-39.1); MEAN CORPUSCULAR HEMOGLOBIN 28.4 pg (28-32); MEAN CORPUSCULAR VOLUME 94.7 fL (81-99); MONOCYTES # (AUTO) 1.2 (0.2-0.8); MONOCYTES % 8.4 % (4.4-11.3); NEUTROPHILS # (AUTO) 11.3 (2.1-6.9); PLATELET COUNT 197 x10e3/uL (140-360); RED BLOOD COUNT 4.15 x10e6/uL (4.3-5.7); RED CELL DISTRIBUTION WIDTH 15.5 % (11.7-14.4); WHITE BLOOD COUNT 14.42 x10e3/uL (4.8-10.8)
[2024-02-01 07:16] LABS: ALBUMIN 2.8 g/dL (3.5-5.0); ALBUMIN/GLOBULIN RATIO 0.9 (0.8-2.0); ANION GAP 14.1 mmol/L (8-16); BILIRUBIN,TOTAL 0.7 mg/dL (0.2-1.2); CALCIUM 8.4 mg/dL (8.4-10.2); CHOL/HDL RATIO 3.9 (3.9-4.7); CREATININE, SERUM 2.58 mg/dL (0.72-1.25); POTASSIUM 4.1 mmol/L (3.5-5.1); TOTAL PROTEIN 5.9 g/dL (6.5-8.1)
[2024-02-01 07:22] LABS: TROPONIN I 0.017 ng/mL (0-0.300)
[2024-02-01] MEDS ORDERED: TRAMADOL HCL 50 MG TAB PO PRN (09:00)
[2024-02-01] MEDS ORDERED: NON-FORMULARY MEDICATION (Gabapentin 600 MG) PO SCH (09:00)
[2024-02-01] MEDS: DIGOXIN INJ 0.25 MG/ML 2 ML AMP IV ONE (10:54)
[2024-02-01 13:07] LABS: TROPONIN I 0.023 ng/mL (0-0.300)
[2024-02-01] MEDS: GABAPENTIN 300 MG CAP PO SCH (14:55)
[2024-02-01] MEDS: METOPROLOL TARTRATE INJ 1 MG/ML VIAL IV PRN (14:56)
[2024-02-01] MEDS ORDERED: AMIODARONE 900MG 500 ML IV ONE (15:16)
[2024-02-01] MEDS: METOPROLOL TARTRATE INJ 1 MG/ML VIAL IV ONE (15:57)
[2024-02-01] MEDS: AMIODARONE 900MG 500 ML IV PRN (15:59)
[2024-02-01] MEDS: METOPROLOL TARTRATE 25 MG TAB PO SCH (18:25)
[2024-02-01] MEDS: ATORVASTATIN 10 MG TAB PO SCH (20:11)
[2024-02-02] VITALS (19 sets, daily range): BP systolic 109–156; BP diastolic 71–131; PULSE 50–145; RESP 5–30; TEMP 97.8–98.2; O2SAT 88–100
[2024-02-02] MEDS ORDERED: CEFTRIAXONE 1 GM VIAL ONE (05:17)
[2024-02-02] MEDS: METOPROLOL TARTRATE 25 MG TAB PO SCH (18:27)
[2024-02-03] VITALS (13 sets, daily range): BP systolic 116–146; BP diastolic 72–123; PULSE 63–134; RESP 10–29; TEMP 98–98.1; O2SAT 92–100
[2024-02-03 06:42] LABS: BASOPHILS # (AUTO) 0.1 (0.0-0.1); BASOPHILS % 0.8 % (0.0-1.0); EOSINOPHILS # (AUTO) 0.3 (0.0-0.4); EOSINOPHILS % 2.1 % (0.0-6.0); HEMATOCRIT 42.2 % (38.2-49.6); HEMOGLOBIN 12.8 g/dL (14.0-18.0); LYMPHOCYTES # (AUTO) 1.4 (1.0-3.2); LYMPHOCYTES % 10.5 % (18.0-39.1); MEAN CORPUSCULAR HEMOGLOBIN 28.1 pg (28-32); MEAN CORPUSCULAR HGB CONC 30.3 g/dL (31-35); MEAN CORPUSCULAR VOLUME 92.7 fL (81-99); MONOCYTES % 7.7 % (4.4-11.3); NEUTROPHILS # (AUTO) 10.3 (2.1-6.9); NEUTROPHILS % 78.3 % (38.7-80.0); PLATELET COUNT 193 x10e3/uL (140-360); RED BLOOD COUNT 4.55 x10e6/uL (4.3-5.7); RED CELL DISTRIBUTION WIDTH 15.3 % (11.7-14.4); WHITE BLOOD COUNT 13.08 x10e3/uL (4.8-10.8)
[2024-02-03 07:06] LABS: ALBUMIN 2.9 g/dL (3.5-5.0); ALBUMIN/GLOBULIN RATIO 0.9 (0.8-2.0); ANION GAP 14.3 mmol/L (8-16); BILIRUBIN,TOTAL 0.7 mg/dL (0.2-1.2); CALCIUM 9.3 mg/dL (8.4-10.2); CREATININE, SERUM 1.98 mg/dL (0.72-1.25); MAGNESIUM 1.6 MG/DL (1.3-2.1); POTASSIUM 4.3 mmol/L (3.5-5.1); TOTAL PROTEIN 6.2 g/dL (6.5-8.1)
[2024-02-03] MEDS: DILTIAZEM HCL 60 MG TAB PO SCH (16:16)
[2024-02-03] MEDS: METOPROLOL TARTRATE 25 MG TAB PO SCH (17:06)
[2024-02-04] VITALS (28 sets, daily range): BP systolic 109–160; BP diastolic 59–121; PULSE 41–143; RESP 10–26; TEMP 97.4–98.6; O2SAT 93–100
[2024-02-04 06:51] LABS: BASOPHILS # (AUTO) 0.1 (0.0-0.1); BASOPHILS % 0.7 % (0.0-1.0); EOSINOPHILS # (AUTO) 0.2 (0.0-0.4); EOSINOPHILS % 1.8 % (0.0-6.0); HEMATOCRIT 42.6 % (38.2-49.6); LYMPHOCYTES # (AUTO) 1.2 (1.0-3.2); LYMPHOCYTES % 8.7 % (18.0-39.1); MEAN CORPUSCULAR HEMOGLOBIN 28.3 pg (28-32); MEAN CORPUSCULAR HGB CONC 30.5 g/dL (31-35); MEAN CORPUSCULAR VOLUME 92.6 fL (81-99); MONOCYTES % 7.4 % (4.4-11.3); NEUTROPHILS # (AUTO) 10.9 (2.1-6.9); NEUTROPHILS % 80.6 % (38.7-80.0); PLATELET COUNT 187 x10e3/uL (140-360); RED CELL DISTRIBUTION WIDTH 15.3 % (11.7-14.4)
[2024-02-04 07:19] LABS: ALBUMIN/GLOBULIN RATIO 0.9 (0.8-2.0); ANION GAP 13.4 mmol/L (8-16); BILIRUBIN,TOTAL 0.7 mg/dL (0.2-1.2); CREATININE, SERUM 1.78 mg/dL (0.72-1.25); MAGNESIUM 1.3 MG/DL (1.3-2.1); POTASSIUM 4.4 mmol/L (3.5-5.1); TOTAL PROTEIN 6.3 g/dL (6.5-8.1)
[2024-02-04] MEDS ORDERED: LIDOCAINE HCL 2% LOCAL INJ 5 ML SDV VIAL INJ ONE (11:08)
[2024-02-04] MEDS ORDERED: MIDAZOLAM HCL 2 MG/2 ML VIAL ONE (11:08)
[2024-02-04] MEDS ORDERED: PROPOFOL IV EMULSION 10 MG/ML 20 ML VIAL ONE ×2 (11:09→12:54)
[2024-02-04] MEDS: FUROSEMIDE INJ 10 MG/ML 4 ML VIAL IV SCH (20:58)
[2024-02-05] VITALS (17 sets, daily range): BP systolic 117–161; BP diastolic 63–98; PULSE 59–76; RESP 12–20; TEMP 97.8–98.6; O2SAT 90–100
[2024-02-05] MEDS ORDERED: ATROPINE SULFATE 1 MG/ML VIAL ONE (06:00)
[2024-02-05] MEDS ORDERED: EPHEDRINE SULFATE INJ 50 MG/ML VIAL ONE (06:00)
[2024-02-05 06:44] LABS: BASOPHILS # (AUTO) 0.1 (0.0-0.1); BASOPHILS % 0.6 % (0.0-1.0); EOSINOPHILS # (AUTO) 0.2 (0.0-0.4); EOSINOPHILS % 1.3 % (0.0-6.0); HEMATOCRIT 41.5 % (38.2-49.6); HEMOGLOBIN 12.4 g/dL (14.0-18.0); LYMPHOCYTES # (AUTO) 0.9 (1.0-3.2); LYMPHOCYTES % 6.3 % (18.0-39.1); MEAN CORPUSCULAR HGB CONC 29.9 g/dL (31-35); MEAN CORPUSCULAR VOLUME 93.7 fL (81-99); MONOCYTES # (AUTO) 1.1 (0.2-0.8); MONOCYTES % 7.9 % (4.4-11.3); NEUTROPHILS # (AUTO) 11.8 (2.1-6.9); PLATELET COUNT 180 x10e3/uL (140-360); RED BLOOD COUNT 4.43 x10e6/uL (4.3-5.7); RED CELL DISTRIBUTION WIDTH 15.1 % (11.7-14.4); WHITE BLOOD COUNT 14.24 x10e3/uL (4.8-10.8)
[2024-02-05 07:24] LABS: ALBUMIN 2.9 g/dL (3.5-5.0); ANION GAP 13.4 mmol/L (8-16); BILIRUBIN,TOTAL 0.8 mg/dL (0.2-1.2); CALCIUM 9.1 mg/dL (8.4-10.2); CREATININE, SERUM 1.85 mg/dL (0.72-1.25); MAGNESIUM 1.4 MG/DL (1.3-2.1); POTASSIUM 4.4 mmol/L (3.5-5.1); TOTAL PROTEIN 5.9 g/dL (6.5-8.1)
[2024-02-05] MEDS: AMIODARONE HCL 200 MG TAB PO SCH (09:35)
[2024-02-05] MEDS: APIXABAN 5 MG TABLET PO SCH (15:18)
[2024-02-06] VITALS (7 sets, daily range): BP systolic 132–160; BP diastolic 67–89; PULSE 68–85; RESP 16–23; TEMP 98–98.7; O2SAT 94–100
[2024-02-06] MEDS: BENZOCAINE 20% SPR 60 ML CAN ONE (09:09)
[2024-02-06] MEDS: SODIUM CHLORIDE 0.9% 1000ML 1,000 ML ONE (09:09)
[2024-02-06] MEDS: PERFLUTREN LIPID MICROSPHERES 2 ML VIAL IV STA (09:10)
[2024-02-06] MEDS: METOPROLOL SUCCINATE 50 MG TAB XL PO SCH (11:08)
[2024-02-06] MEDS ORDERED: SODIUM CHLORIDE 0.9% 500 ML IV PRN (15:00)
[2024-02-06] MEDS ORDERED: SODIUM CHLORIDE 0.9% 500ML 500 ML ONE (15:39)
[2024-02-06] MEDS: SODIUM CHLORIDE 0.9% 500ML 500 ML IV PRN (17:08)
[2024-02-06] MEDS: MECLIZINE HCL 12.5 MG TAB PO PRN (17:14)
[2024-02-07] VITALS (8 sets, daily range): BP systolic 121–155; BP diastolic 63–88; PULSE 61–67; RESP 16–18; TEMP 98.1–98.5; O2SAT 92–100
[2024-02-07 06:42] LABS: BASOPHILS # (AUTO) 0.1 (0.0-0.1); BASOPHILS % 0.6 % (0.0-1.0); EOSINOPHILS # (AUTO) 0.3 (0.0-0.4); EOSINOPHILS % 1.7 % (0.0-6.0); HEMATOCRIT 45.4 % (38.2-49.6); HEMOGLOBIN 14.4 g/dL (14.0-18.0); LYMPHOCYTES # (AUTO) 1.3 (1.0-3.2); LYMPHOCYTES % 8.9 % (18.0-39.1); MEAN CORPUSCULAR HEMOGLOBIN 28.2 pg (28-32); MEAN CORPUSCULAR HGB CONC 31.7 g/dL (31-35); MONOCYTES # (AUTO) 1.5 (0.2-0.8); MONOCYTES % 10.2 % (4.4-11.3); NEUTROPHILS # (AUTO) 11.2 (2.1-6.9); NEUTROPHILS % 77.4 % (38.7-80.0); PLATELET COUNT 221 x10e3/uL (140-360); RED CELL DISTRIBUTION WIDTH 15.2 % (11.7-14.4); WHITE BLOOD COUNT 14.43 x10e3/uL (4.8-10.8)
[2024-02-07 07:07] LABS: ALBUMIN 3.3 g/dL (3.5-5.0); ALBUMIN/GLOBULIN RATIO 0.9 (0.8-2.0); ANION GAP 15.3 mmol/L (8-16); BILIRUBIN,TOTAL 1.4 mg/dL (0.2-1.2); CALCIUM 9.3 mg/dL (8.4-10.2); CREATININE, SERUM 1.52 mg/dL (0.72-1.25); MAGNESIUM 1.3 MG/DL (1.3-2.1); POTASSIUM 4.3 mmol/L (3.5-5.1); TOTAL PROTEIN 6.8 g/dL (6.5-8.1)
[2024-02-08 03:51] VITALS: BP 154/82; PULSE 67; RESP 18; TEMP 98.5; O2SAT 98
[2024-02-08 07:48] LABS: BASOPHILS # (AUTO) 0.1 (0.0-0.1); BASOPHILS % 0.8 % (0.0-1.0); EOSINOPHILS # (AUTO) 0.3 (0.0-0.4); EOSINOPHILS % 2.1 % (0.0-6.0); HEMATOCRIT 46.7 % (38.2-49.6); HEMOGLOBIN 14.7 g/dL (14.0-18.0); LYMPHOCYTES # (AUTO) 1.4 (1.0-3.2); LYMPHOCYTES % 9.3 % (18.0-39.1); MEAN CORPUSCULAR HEMOGLOBIN 27.9 pg (28-32); MEAN CORPUSCULAR HGB CONC 31.5 g/dL (31-35); MEAN CORPUSCULAR VOLUME 88.6 fL (81-99); MONOCYTES # (AUTO) 1.5 (0.2-0.8); NEUTROPHILS # (AUTO) 11.1 (2.1-6.9); NEUTROPHILS % 76.5 % (38.7-80.0); PLATELET COUNT 209 x10e3/uL (140-360); RED BLOOD COUNT 5.27 x10e6/uL (4.3-5.7); WHITE BLOOD COUNT 14.51 x10e3/uL (4.8-10.8)
[2024-02-08 08:11] LABS: ALBUMIN 3.2 g/dL (3.5-5.0); ALBUMIN/GLOBULIN RATIO 0.9 (0.8-2.0); ANION GAP 14.6 mmol/L (8-16); BILIRUBIN,TOTAL 1.1 mg/dL (0.2-1.2); CALCIUM 9.1 mg/dL (8.4-10.2); CREATININE, SERUM 1.58 mg/dL (0.72-1.25); MAGNESIUM 1.3 MG/DL (1.3-2.1); POTASSIUM 4.6 mmol/L (3.5-5.1); TOTAL PROTEIN 6.8 g/dL (6.5-8.1)
[2024-02-08 08:30] VITALS: BP 106/79; PULSE 65; RESP 16; TEMP 98.5; O2SAT 99
[2024-02-08 08:36] VITALS: BP 106/79; PULSE 65; RESP 16; TEMP 98.5; O2SAT 99
[2024-02-08 11:37] VITALS: BP 158/79; PULSE 53; RESP 18; TEMP 97.3; O2SAT 100
[2024-02-08] MEDS: MECLIZINE HCL 12.5 MG TAB PO PRN (14:24)
[2024-02-08 15:34] VITALS: BP 159/71; PULSE 57; RESP 18; TEMP 97.5; O2SAT 100
[2024-02-08 20:00] VITALS: BP 146/76; PULSE 64; RESP 18; TEMP 98.4; O2SAT 100
[2024-02-08] MEDS: MECLIZINE HCL 12.5 MG TAB PO SCH (21:48)
[2024-02-09] VITALS (10 sets, daily range): BP systolic 121–154; BP diastolic 57–82; PULSE 56–94; RESP 17–20; TEMP 97.6–98.6; O2SAT 98–100
[2024-02-09] MEDS: MECLIZINE HCL 12.5 MG TAB PO SCH (20:28)
[2024-02-10] MEDS: MECLIZINE HCL 12.5 MG TAB PO SCH (03:17)
[2024-02-10 03:38] VITALS: BP 122/57; PULSE 63; RESP 18; TEMP 99.1; O2SAT 98
[2024-02-10 08:26] VITALS: BP 122/61; PULSE 58; RESP 18; TEMP 98.5; O2SAT 100
[2024-02-10] MEDS: TRAMADOL HCL 50 MG TAB PO PRN (09:05)
[2024-02-10 09:14] VITALS: BP 122/61; PULSE 58; RESP 18; TEMP 98.5; O2SAT 100
[2024-02-10 11:28] VITALS: BP 130/58; PULSE 60; RESP 18; TEMP 98.1; O2SAT 100
[2024-02-10 16:38] VITALS: BP 138/66; PULSE 60; RESP 18; TEMP 98.9; O2SAT 100
[2024-02-10 20:00] VITALS: BP 134/64; PULSE 61; RESP 18; TEMP 97.9; O2SAT 100
[2024-02-11] VITALS (8 sets, daily range): BP systolic 132–159; BP diastolic 55–68; PULSE 53–63; RESP 16–18; TEMP 97.7–98.9; O2SAT 98–100
[2024-02-11 06:26] LABS: BASOPHILS # (AUTO) 0.1 (0.0-0.1); BASOPHILS % 0.8 % (0.0-1.0); EOSINOPHILS # (AUTO) 0.3 (0.0-0.4); EOSINOPHILS % 1.6 % (0.0-6.0); HEMATOCRIT 45.2 % (38.2-49.6); HEMOGLOBIN 13.8 g/dL (14.0-18.0); LYMPHOCYTES # (AUTO) 1.3 (1.0-3.2); LYMPHOCYTES % 7.3 % (18.0-39.1); MEAN CORPUSCULAR HGB CONC 30.5 g/dL (31-35); MEAN CORPUSCULAR VOLUME 91.9 fL (81-99); MONOCYTES # (AUTO) 1.7 (0.2-0.8); MONOCYTES % 9.9 % (4.4-11.3); NEUTROPHILS # (AUTO) 13.6 (2.1-6.9); NEUTROPHILS % 79.2 % (38.7-80.0); PLATELET COUNT 243 x10e3/uL (140-360); RED BLOOD COUNT 4.92 x10e6/uL (4.3-5.7); RED CELL DISTRIBUTION WIDTH 14.8 % (11.7-14.4); WHITE BLOOD COUNT 17.15 x10e3/uL (4.8-10.8)
[2024-02-11 06:58] LABS: ALBUMIN/GLOBULIN RATIO 0.9 (0.8-2.0); ANION GAP 16.3 mmol/L (8-16); BILIRUBIN,TOTAL 0.8 mg/dL (0.2-1.2); CALCIUM 8.6 mg/dL (8.4-10.2); CREATININE, SERUM 1.73 mg/dL (0.72-1.25); MAGNESIUM 1.5 MG/DL (1.3-2.1); POTASSIUM 4.3 mmol/L (3.5-5.1); TOTAL PROTEIN 6.4 g/dL (6.5-8.1)
[2024-02-11] MEDS: SODIUM CHLORIDE 0.9% 1000ML 1,000 ML IV SCH (11:06)
[2024-02-11] MEDS ORDERED: BISACODYL 5 MG TAB EC PO PRN (18:00)
[2024-02-12] MEDS: HYDROCODONE/APAP 10MG-325MG TAB PO PRN (03:45)
[2024-02-12 04:03] VITALS: BP 135/86; PULSE 64; RESP 18; TEMP 98.4; O2SAT 97
[2024-02-12 06:42] LABS: BASOPHILS # (AUTO) 0.2 (0.0-0.1); BASOPHILS % 1.1 % (0.0-1.0); EOSINOPHILS # (AUTO) 0.3 (0.0-0.4); EOSINOPHILS % 2.2 % (0.0-6.0); HEMATOCRIT 43.8 % (38.2-49.6); HEMOGLOBIN 13.8 g/dL (14.0-18.0); LYMPHOCYTES # (AUTO) 1.3 (1.0-3.2); LYMPHOCYTES % 8.2 % (18.0-39.1); MEAN CORPUSCULAR HEMOGLOBIN 27.9 pg (28-32); MEAN CORPUSCULAR HGB CONC 31.5 g/dL (31-35); MEAN CORPUSCULAR VOLUME 88.5 fL (81-99); MONOCYTES # (AUTO) 1.5 (0.2-0.8); MONOCYTES % 10.1 % (4.4-11.3); NEUTROPHILS # (AUTO) 11.8 (2.1-6.9); NEUTROPHILS % 76.9 % (38.7-80.0); PLATELET COUNT 297 x10e3/uL (140-360); RED BLOOD COUNT 4.95 x10e6/uL (4.3-5.7); RED CELL DISTRIBUTION WIDTH 14.6 % (11.7-14.4); WHITE BLOOD COUNT 15.28 x10e3/uL (4.8-10.8)
[2024-02-12 07:08] LABS: ALBUMIN/GLOBULIN RATIO 0.8 (0.8-2.0); ANION GAP 12.3 mmol/L (8-16); BILIRUBIN,TOTAL 0.8 mg/dL (0.2-1.2); CALCIUM 8.7 mg/dL (8.4-10.2); CREATININE, SERUM 1.54 mg/dL (0.72-1.25); POTASSIUM 4.3 mmol/L (3.5-5.1); TOTAL PROTEIN 6.6 g/dL (6.5-8.1)
[2024-02-12 09:12] VITALS: BP 127/65; PULSE 55; RESP 16; TEMP 98.4; O2SAT 98
[2024-02-12 09:50] VITALS: BP 127/65; PULSE 55; RESP 16; TEMP 98.4; O2SAT 98
[2024-02-12 16:00] VITALS: BP 138/68; PULSE 58; RESP 18; TEMP 98.2; O2SAT 100
[2024-02-12 19:45] VITALS: BP 158/72; PULSE 70; RESP 19; TEMP 98.6; O2SAT 98
[2024-02-12 22:00] VITALS: BP 158/72; PULSE 70; RESP 19; TEMP 98.6; O2SAT 98
[2024-02-13] VITALS (9 sets, daily range): BP systolic 125–173; BP diastolic 58–97; PULSE 55–71; RESP 17–21; TEMP 97.5–98.6; O2SAT 97–100
[2024-02-13] MEDS: LORAZEPAM 0.5 MG TAB PO SCH (09:12)
[2024-02-13] MEDS: ONDANSETRON HCL INJ 2MG/ML 2ML 2 MG/ML VIAL IV PRN (10:16)
[2024-02-13] MEDS: SCOPOLAMINE 1 MG PATCH TOP SCH (11:18)
[2024-02-14] VITALS (7 sets, daily range): BP systolic 99–150; BP diastolic 61–78; PULSE 53–69; RESP 16–19; TEMP 98.2–98.6; O2SAT 98–100
[2024-02-14] MEDS: MAGNESIUM SULFATE 2GM/50ML 50 ML IV ONE (06:28)
[2024-02-14 06:47] LABS: BASOPHILS # (AUTO) 0.1 (0.0-0.1); BASOPHILS % 0.9 % (0.0-1.0); EOSINOPHILS # (AUTO) 0.2 (0.0-0.4); EOSINOPHILS % 1.6 % (0.0-6.0); HEMATOCRIT 45.1 % (38.2-49.6); HEMOGLOBIN 13.9 g/dL (14.0-18.0); LYMPHOCYTES # (AUTO) 1.1 (1.0-3.2); LYMPHOCYTES % 7.1 % (18.0-39.1); MEAN CORPUSCULAR HEMOGLOBIN 27.8 pg (28-32); MEAN CORPUSCULAR HGB CONC 30.8 g/dL (31-35); MEAN CORPUSCULAR VOLUME 90.2 fL (81-99); MONOCYTES # (AUTO) 1.6 (0.2-0.8); MONOCYTES % 10.1 % (4.4-11.3); NEUTROPHILS # (AUTO) 12.1 (2.1-6.9); NEUTROPHILS % 78.4 % (38.7-80.0); PLATELET COUNT 343 x10e3/uL (140-360); RED CELL DISTRIBUTION WIDTH 14.6 % (11.7-14.4); WHITE BLOOD COUNT 15.39 x10e3/uL (4.8-10.8)
[2024-02-14 07:15] LABS: ALBUMIN 2.9 g/dL (3.5-5.0); ALBUMIN/GLOBULIN RATIO 0.8 (0.8-2.0); ANION GAP 13.6 mmol/L (8-16); BILIRUBIN,TOTAL 0.9 mg/dL (0.2-1.2); CALCIUM 9.1 mg/dL (8.4-10.2); CREATININE, SERUM 1.64 mg/dL (0.72-1.25); POTASSIUM 4.6 mmol/L (3.5-5.1); TOTAL PROTEIN 6.7 g/dL (6.5-8.1)
[2024-02-15] VITALS (7 sets, daily range): BP systolic 123–157; BP diastolic 67–79; PULSE 53–70; RESP 17–18; TEMP 97.6–98.3; O2SAT 96–100
[2024-02-16] VITALS (7 sets, daily range): BP systolic 135–167; BP diastolic 65–89; PULSE 52–72; RESP 18–20; TEMP 97.2–98.4; O2SAT 94–100
[2024-02-16 07:00] LABS: BASOPHILS # (AUTO) 0.2 (0.0-0.1); BASOPHILS % 1.1 % (0.0-1.0); EOSINOPHILS # (AUTO) 0.4 (0.0-0.4); EOSINOPHILS % 2.6 % (0.0-6.0); HEMATOCRIT 47.7 % (38.2-49.6); HEMOGLOBIN 14.3 g/dL (14.0-18.0); LYMPHOCYTES # (AUTO) 1.6 (1.0-3.2); LYMPHOCYTES % 10.8 % (18.0-39.1); MEAN CORPUSCULAR HEMOGLOBIN 27.9 pg (28-32); MEAN CORPUSCULAR VOLUME 93.2 fL (81-99); MONOCYTES # (AUTO) 1.2 (0.2-0.8); MONOCYTES % 8.2 % (4.4-11.3); NEUTROPHILS # (AUTO) 10.6 (2.1-6.9); NEUTROPHILS % 74.2 % (38.7-80.0); PLATELET COUNT 342 x10e3/uL (140-360); RED BLOOD COUNT 5.12 x10e6/uL (4.3-5.7); RED CELL DISTRIBUTION WIDTH 14.4 % (11.7-14.4); WHITE BLOOD COUNT 14.34 x10e3/uL (4.8-10.8)
[2024-02-16 07:43] LABS: ALBUMIN 3.2 g/dL (3.5-5.0); ALBUMIN/GLOBULIN RATIO 0.8 (0.8-2.0); ANION GAP 15.8 mmol/L (8-16); BILIRUBIN,TOTAL 0.7 mg/dL (0.2-1.2); CALCIUM 9.4 mg/dL (8.4-10.2); CREATININE, SERUM 1.62 mg/dL (0.72-1.25); POTASSIUM 4.8 mmol/L (3.5-5.1)
[2024-02-16] MEDS: FAMOTIDINE 20 MG TAB PO SCH (09:58)
[2024-02-16] MEDS ORDERED: ELIQUIS5 MG PO (11:01)
[2024-02-16] MEDS ORDERED: MECLIZINE HCL12.5 MG PO (11:03)
[2024-02-16] MEDS ORDERED: TRANSDERM-SCOP1 EACH TD (11:03)
[2024-02-16] MEDS ORDERED: ONDANSETRON ODT4 MG PO (11:04)
[2024-02-16] MEDS: SUCRALFATE 1 GM/10 ML SUSP NG SCH (12:08)
[2024-02-16] MEDS: MECLIZINE HCL 12.5 MG TAB PO PRN (15:02)
[2024-02-17] VITALS (7 sets, daily range): BP systolic 134–150; BP diastolic 61–76; PULSE 51–53; RESP 16–21; TEMP 97.3–98.1; O2SAT 98–100
[2024-02-18 07:20] LABS: BASOPHILS # (AUTO) 0.2 (0.0-0.1); BASOPHILS % 1.3 % (0.0-1.0); EOSINOPHILS # (AUTO) 0.3 (0.0-0.4); EOSINOPHILS % 2.5 % (0.0-6.0); HEMATOCRIT 43.1 % (38.2-49.6); HEMOGLOBIN 13.4 g/dL (14.0-18.0); LYMPHOCYTES % 14.8 % (18.0-39.1); MEAN CORPUSCULAR HEMOGLOBIN 27.7 pg (28-32); MEAN CORPUSCULAR HGB CONC 31.1 g/dL (31-35); MONOCYTES # (AUTO) 1.2 (0.2-0.8); MONOCYTES % 9.4 % (4.4-11.3); NEUTROPHILS % 68.1 % (38.7-80.0); PLATELET COUNT 360 x10e3/uL (140-360); RED BLOOD COUNT 4.84 x10e6/uL (4.3-5.7); RED CELL DISTRIBUTION WIDTH 14.2 % (11.7-14.4); WHITE BLOOD COUNT 13.26 x10e3/uL (4.8-10.8)
[2024-02-18 07:45] VITALS: BP 166/70; PULSE 57; RESP 19; TEMP 98.1; O2SAT 96
[2024-02-18 08:04] LABS: ALBUMIN 3.1 g/dL (3.5-5.0); ALBUMIN/GLOBULIN RATIO 0.9 (0.8-2.0); ANION GAP 14.5 mmol/L (8-16); BILIRUBIN,TOTAL 0.7 mg/dL (0.2-1.2); CALCIUM 8.9 mg/dL (8.4-10.2); CREATININE, SERUM 1.72 mg/dL (0.72-1.25); MAGNESIUM 1.7 MG/DL (1.3-2.1); POTASSIUM 4.5 mmol/L (3.5-5.1); TOTAL PROTEIN 6.5 g/dL (6.5-8.1)
[2024-02-18 08:39] VITALS: BP 166/70; PULSE 57; RESP 16; TEMP 98.2; O2SAT 96
[2024-02-18 12:16] VITALS: BP 152/74; PULSE 62; RESP 18; TEMP 98.4; O2SAT 98
[2024-02-18 16:33] VITALS: BP 149/78; PULSE 54; RESP 17; TEMP 98.2; O2SAT 99
[2024-02-18] MEDS: GABAPENTIN 300 MG CAP PO SCH (17:20)
[2024-02-18 19:36] VITALS: BP 134/65; PULSE 53; RESP 18; TEMP 99; O2SAT 99
[2024-02-18 22:23] VITALS: BP 134/65; PULSE 53; RESP 18; TEMP 99; O2SAT 99
[2024-02-19 00:15] VITALS: BP 138/64; PULSE 51; RESP 20; TEMP 98.1; O2SAT 96
[2024-02-19 04:00] VITALS: BP 134/66; PULSE 51; RESP 20; TEMP 97.9; O2SAT 99
[2024-02-19 07:38] VITALS: BP 153/68; PULSE 53; RESP 17; TEMP 98; O2SAT 100
[2024-02-19 08:16] VITALS: BP 153/68; PULSE 53; RESP 17; TEMP 98; O2SAT 100
[2024-02-19] MEDS: HYDROCODONE/APAP 10MG-325MG TAB PO PRN (11:51)
[2024-02-19] MEDS ORDERED: ONDANSETRON HCL 4 MG ORAL DISINTEGRATING TAB PO PRN (12:00)
[2024-02-19 12:19] VITALS: BP 161/65; PULSE 54; RESP 19; TEMP 98; O2SAT 100
== END 2024-02-19 13:25 | DRG 308 ==
LOC: ER 17:31 → ERHOLD 19:17 → ICU 22:45 → MED/SURG3 02-05 20:04
PROVIDERS: ADMIT Internal Medicine; ATTEND Internal Medicine
PROC: 5A2204Z Restoration of Cardiac Rhythm, Single (ICD-10-PCS; principal; 2024-02-04)
PROC: B245ZZ4 Ultrasonography of Left Heart, Transesophageal (ICD-10-PCS; 2024-02-04)
DX: I48.20 Chronic atrial fibrillation, unspecified (principal); I50.31 Acute diastolic (congestive) heart failure; N17.9 Acute kidney failure, unspecified; N39.0 Urinary tract infection, site not specified; I13.0 Hypertensive heart and chronic kidney disease with heart failure and stage 1 through stage 4 chronic kidney disease, or unspecified chronic kidney disease; Z79.01 Long term (current) use of anticoagulants; R42 Dizziness and giddiness; E11.22 Type 2 diabetes mellitus with diabetic chronic kidney disease; N18.31 Chronic kidney disease, stage 3a; E11.40 Type 2 diabetes mellitus with diabetic neuropathy, unspecified; Z79.84 Long term (current) use of oral hypoglycemic drugs; E78.5 Hyperlipidemia, unspecified; R00.0 Tachycardia, unspecified; R26.81 Unsteadiness on feet; R53.1 Weakness; I95.1 Orthostatic hypotension; R00.1 Bradycardia, unspecified; I95.9 Hypotension, unspecified; K21.9 Gastro-esophageal reflux disease without esophagitis; D64.9 Anemia, unspecified; E66.01 Morbid (severe) obesity due to excess calories; Z68.38 Body mass index [BMI] 38.0-38.9, adult; Z71.3 Dietary counseling and surveillance; Z60.2 Problems related to living alone; Z79.899 Other long term (current) drug therapy; Z88.5 Allergy status to narcotic agent; Z88.0 Allergy status to penicillin; Z91.041 Radiographic dye allergy status
CPT/HCPCS: 36415; 51700; 70486; 71045; 71046; 78580; 80053; 80061; 81001; 82550; 83605; 83735; 83880; 84443; 84484; 85025; 85610; 85730; 87040; 87086; 92960; 93005; 93306; 93307; 93312; 93320; 93325; 94799; 99252; 99284; A9540; J0461; J0696; J1160; J1644; J1940; J2003; J2250; J2405; J2470; J3475; J7030; J7040; J7050